=== PATIENT | female | born 1945 | race Caucasian/White ===

== ENCOUNTER 2017-08-11 16:45 | Inpatient (IN) | payer MEDICARE, BC ==
[2017-08-11] VITALS (119 sets, daily range): BP systolic 140; BP diastolic 86; PULSE 127; TEMP 96.6; O2SAT 68–100
[~2017-08-11] VITALS: Ht 157.5 cm; Wt 48.7 kg
[~2017-08-11 16:45] MED LIST: NO HOME MEDICATIONS
[2017-08-11 17:30] LABS: HEMATOCRIT 49.2 % (37.0-47.0); HEMOGLOBIN 15.4 g/dl (12.5-16.0); MEAN CELL VOLUME 107 fl (80.0-100.0); MEAN CORPUSCULAR HEMOGLOBIN 34 pg (27.0-31.0); MEAN CORPUSCULAR HGB CONC 31 g/dl (33.0-37.0); PLATELET COUNT 247 K/mm3 (130-400)
[2017-08-11 17:31] LABS: WHITE BLOOD COUNT 27.3 K/mm3 (4.8-10.8)
[2017-08-11 17:32] LABS: ADD PATHOLOGY DIFF REVIEW NO
[2017-08-11 17:33] LABS: ADJUSTED CALCIUM 8.9 mg/dL (8.4-10.2); ALBUMIN 4.4 gm/dL (3.5-5.0); BILIRUBIN,TOTAL 5.8 mg/dL (0.0-1.0); CALCIUM 9.2 mg/dL (8.4-10.2); CREATININE, serum 2.17 mg/dL (0.52-1.25); POTASSIUM 4.9 mmol/L (3.4-5.0); TOTAL PROTEIN 7.4 gm/dL (6.4-8.2)
[2017-08-11 17:42] LABS: ARTERIAL BLD GAS O2 SATURATION 93.9 % (92-100); ARTERIAL BLD GAS TCO2 CT 8.5; ARTERIAL BLOOD GAS BASE EXCESS -15.5 (-2-2); ARTERIAL BLOOD GAS PO2 83.6 mmHg (80-100); OXYHEMOGLOBIN 92.7 %
[2017-08-11 17:43] LABS: ALLEN TEST YES; ALLENS TEST RESULT PASS; ATS? YES
[2017-08-11 17:44] LABS: TROPONIN-I 0.026 ng/mL (0.000-0.034)
[2017-08-11 18:03] LABS: INR 1.7 (0.8-3.0); PROTHROMBIN TIME 19.2 SECONDS (9.7-12.8)
[2017-08-11 18:53] LABS: BAND 13 % (0-10); LYMPHOCYTE 3 % (20.0-51.0); METAMYELOCYTE 1 % (0-0); NEUTROPHILS 73 % (42.0-75.2); NUCLEATED RED BLOOD CELL 4 (0-6); TOTAL CELLS COUNTED 100
[2017-08-11 18:54] LABS: PLATELET ESTIMATE NORMAL (NORMAL); POLYCHROMASIA 1+
[2017-08-11 18:55] LABS: MICROCYTOSIS 2+
[2017-08-11 19:40] LABS: COLLECTION METHOD CATHETER
[2017-08-11 20:01] LABS: HYALINE CAST >12 /lpf; MUCOUS Present /lpf; PH 5 (5-8); SQUAMOUS EPITHELIAL 0-2 /hpf; URINE APPEARANCE Cloudy; URINE BACTERIA Moderate /hpf; URINE BILIRUBIN Negative (NEGATIVE); URINE BLOOD 1+ (NEGATIVE); URINE COLOR Amber; URINE GLUCOSE Negative (NEGATIVE); URINE KETONE Negative (NEGATIVE); URINE LEUKOCYTE ESTERASE Negative (NEGATIVE); URINE PROTEIN(semi-quant) 2+ (NEGATIVE); URINE RBC 0-2 /hpf
[2017-08-11 21:55] LABS: ARTERIAL BLD GAS TCO2 CT 5.9; ARTERIAL BLOOD GAS BASE EXCESS -24.3 (-2-2); ARTERIAL BLOOD GAS HCO3 5.3 meq/L (22-26); ARTERIAL BLOOD GAS PO2 56.8 mmHg (80-100); ARTERIAL BLOOD GAS PO2T 56.8 (80-100); OXYHEMOGLOBIN 67.4 %
[2017-08-11 21:58] LABS: ALLEN TEST NO; ARTERIAL BLOOD GAS PHT 7.01 C (7.35-7.45); ARTERIAL BLOOD GAS pH 7.01 (7.35-7.45); ATS? YES
[2017-08-11 23:07] LABS: TROPONIN-I 0.031 ng/mL (0.000-0.034)
[2017-08-12] VITALS (557 sets, daily range): BP systolic 32–132; BP diastolic 0–96; PULSE 74–138; TEMP 96.3–97.8; O2SAT 67–100
[2017-08-12 04:46] LABS: ARTERIAL BLD GAS O2 SATURATION 69.6 % (92-100); ARTERIAL BLD GAS TCO2 CT 9.5; ARTERIAL BLOOD GAS HCO3 8.5 meq/L (22-26); ARTERIAL BLOOD GAS PO2 53.4 mmHg (80-100); ARTERIAL BLOOD GAS PO2T 53.4 (80-100); OXYHEMOGLOBIN 68.7 %
[2017-08-12 04:47] LABS: ALLEN TEST NO; ARTERIAL BLOOD GAS PHT 7.05 C (7.35-7.45); ARTERIAL BLOOD GAS pH 7.05 (7.35-7.45); ATS? YES
[2017-08-12 06:13] LABS: INR 2.8 (0.8-3.0); PROTHROMBIN TIME 31.8 SECONDS (9.7-12.8)
[2017-08-12 06:15] LABS: HEMATOCRIT 46.6 % (37.0-47.0); HEMOGLOBIN 14.1 g/dl (12.5-16.0); MEAN CELL VOLUME 110 fl (80.0-100.0); MEAN CORPUSCULAR HEMOGLOBIN 33 pg (27.0-31.0); MEAN CORPUSCULAR HGB CONC 30 g/dl (33.0-37.0); MEAN PLATELET VOLUME 10.1 fl (7.4-10.4); PLATELET COUNT 149 K/mm3 (130-400); RED BLOOD COUNT 4.22 M/mm3 (4.10-5.30)
[2017-08-12 06:22] LABS: ADD PATHOLOGY DIFF REVIEW NO; ADJUSTED CALCIUM 8.3 mg/dL (8.4-10.2); ALBUMIN 3.3 gm/dL (3.5-5.0); BILIRUBIN,TOTAL 6.4 mg/dL (0.0-1.0); CALCIUM 7.7 mg/dL (8.4-10.2); POTASSIUM 5.3 mmol/L (3.4-5.0); TOTAL PROTEIN 5.9 gm/dL (6.4-8.2); WHITE BLOOD COUNT 33.3 K/mm3 (4.8-10.8)
[2017-08-12 06:28] LABS: CREATININE, serum 2.1 mg/dL (0.52-1.25)
[2017-08-12 08:16] LABS: BAND 41 % (0-10); LYMPHOCYTE 6 % (20.0-51.0); METAMYELOCYTE 1 % (0-0); MYELOCYTE 1 % (0-0); NEUTROPHILS 50 % (42.0-75.2); PLATELET ESTIMATE NORMAL (NORMAL); TOTAL CELLS COUNTED 100
[2017-08-13] VITALS: BP 83/45; PULSE 72; TEMP 97.4
[2017-08-13 04:00] VITALS: BP 92/55; PULSE 81; TEMP 96.7
[2017-08-13 08:00] VITALS: BP 87/49; PULSE 84
[2017-08-14] MEDS ORDERED: LIQUIFILM TEARS15 ML OP (08:59)
[2017-08-14] MEDS ORDERED: ATROPINE 2 ML2 ML SL (08:59)
[2017-08-14] MEDS ORDERED: ROXANOL 20MG20 MG/ML SL (09:01)
[2017-08-14] MEDS ORDERED: TRANSDERM-0.5 MG/21 TD (09:02)
[2017-08-14] MEDS ORDERED: ATIVAN 0.50.5 MG/TAB PO (09:03)
[2017-08-14 12:13] VITALS: BP 87/49; PULSE 84; TEMP 96.7
== END 2017-08-14 13:56 | disposition hospice, home (50) | DRG 871 ==
LOC: COL.ER 16:45 → ICU 18:58 → MEDICAL 08-13 16:32
PROVIDERS: Emergency Medicine; Internal Medicine Pulmonary Disease; Nurse Practitioner
DX: A41.9 Sepsis, unspecified organism (principal); J18.9 Pneumonia, unspecified organism; R65.21 Severe sepsis with septic shock; J96.01 Acute respiratory failure with hypoxia; K72.00 Acute and subacute hepatic failure without coma; Z66 Do not resuscitate; Z51.5 Encounter for palliative care; N17.9 Acute kidney failure, unspecified; J90 Pleural effusion, not elsewhere classified; I48.91 Unspecified atrial fibrillation; E87.5 Hyperkalemia
CPT/HCPCS: 99223-AI; 99232-AI; 99239; J1170; J1956; J2060; J2270; J2405; J3010; J3370; J7030; J7050; J7060